=== PATIENT | male | born 1955 | race Caucasian/White ===

== ENCOUNTER 2021-04-08 17:33 | Emergency (ER) | payer OTHER, SELFPAY ==
--- NOTE | ~2021-04-08 | CT_ITS ---
EXAMINATION: CT HEAD WITHOUT CONTRAST CT CERVICAL SPINE WITHOUT CONTRAST CLINICAL INFORMATION: Fall. EtOH. COMPARISON: None. TECHNIQUE: Imaging was performed from the skull base to vertex without intravenous administration of contrast. In addition, helical noncontrast CT imaging was acquired through the cervical spine and source images were reviewed along with axial reconstructions and sagittal and coronal MPRs. [This CT examination was performed using dose optimization techniques as appropriate, variously including the following: *Automated exposure control *Adjustment of mA and/or kV according to patient size (this includes techniques or standardized protocols for targeted exams where dose is matched to indication/reason for exam; i.e. extremities or head) *Use of iterative reconstruction technique] DLP: 911 mGy-cm FINDINGS: HEAD: No intracranial mass, hemorrhage, or midline shift is visualized. There is generalized global volume loss. There is mild prominence of the ventricles and the sulci . There is mild hypodensity of the periventricular white matter due to chronic small vessel ischemic disease. There are vascular calcifications of the internal carotid arteries bilaterally. No extra-axial collections are identified. The left maxillary sinus is entirely opacified. Mastoid air cells and middle ear cavities are normally aerated. CERVICAL SPINE: There is no evidence of acute cervical spine fracture. Vertebral bodies remain normal in height. Cervical vertebrae have normal alignment. Cervical disc heights are normal. There is mild to moderate facet joint arthrosis bilaterally at the upper cervical spine. No pre- or paravertebral soft tissue abnormality is identified. Severe emphysematous change of lung apices. CT/CT cervical spine wo con IMPRESSION: 1. No acute intracranial pathology. 2. No CT evidence of acute cervical spine fracture or traumatic subluxation
--- NOTE | ~2021-04-08 | XR_ITS ---
EXAMINATION: XR ANKLE, LEFT CLINICAL INFORMATION: Fall. EtOH. COMPARISON: None TECHNIQUE: AP, lateral, and mortise views of the left ankle. FINDINGS: There is an obliquely oriented distal fibular fracture extending to the level of the ankle mortise. This appears acute. There is also a transverse fracture of the more distal aspect of the lateral malleolus which may be subacute. The ankle mortise is congruent. Soft tissue swelling at the ankle. No significant joint effusion. Plantar heel spur. XR/XR ankle LT 2V IMPRESSION: Acute obliquely oriented distal fibular fracture (Carbajal B). Likely subacute more distal fibular fracture (Carbajal A)
[2021-04-08 17:37] VITALS: BP 152/92; PULSE 80; O2SAT 99
[2021-04-08 18:04] VITALS: BP 108/82; PULSE 118; RESP 18; O2SAT 92; BMI 24.3
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
--- NOTE | 2021-04-08 19:41 | PC.NURSE ---
SPLINT APPLIED TO LEFT LE. PT TOLERATED WELL.
[2021-04-08 20:47] VITALS: BP 129/88; PULSE 116; RESP 18; TEMP 36.7; O2SAT 95
== END 2021-04-08 21:09 | disposition home or self-care (01) ==
PROVIDERS: Emergency Provider Emergency Medicine; PCP Internal Medicine
DX: S82.832A Other fracture of upper and lower end of left fibula, initial encounter for closed fracture (principal); S82.62XD Displaced fracture of lateral malleolus of left fibula, subsequent encounter for closed fracture with routine healing; X58.XXXD Exposure to other specified factors, subsequent encounter; W01.0XXA Fall on same level from slipping, tripping and stumbling without subsequent striking against object, initial encounter; Y93.9 Activity, unspecified; Y92.9 Unspecified place or not applicable; Y99.9 Unspecified external cause status
CPT/HCPCS: 29515; 70450; 72125; 73600; 99284